=== PATIENT | male | born 1940 | race Caucasian/White ===

== ENCOUNTER → 2018-08-10 | Outpatient (CLI) | payer OTHER, MEDICARE ==
--- NOTE | 2018-08-13 06:08 | SLE ---
[facility] [address] POLYSOMNOGRAPHY STUDY Name: LD CHEEMA JR Room #: REG [facility]#: [id number] Admission: 08/10/18 ������������������ Attend Phys: Gal Bonilla MD Discharge: ������������������ Date of : 36 Report #: [id number] THIS REPORT FOR: //name// CC: Gal Enrique MD DATE OF SERVICE: 08/10/2018 ATTENDING PHYSICIAN: Sterling Enrique M.D. INTERPRETATION: The patient is a 77 years old. The patient's weight and height and BMI was not available at the time of dictation. The patient had an abnormal nocturnal oximetry study as an outpatient. As a result, suspicion for sleep apnea was high and the patient was referred to [facility] for a sleep study. This was a diagnostic study. During the night study, the patient spent 471 minutes in bed and slept for 276 minutes with low sleep efficiency of 58%. Sleep latency was 19 minutes with a REM latency of 145 minutes. Overall, sleep architecture showed increased stage 1 sleep, normal stage 2 sleep, absent N3 sleep and reduced REM sleep. During the night study, the patient had no apneas and 6 hypopneas. The patient's apnea-hypopnea index for the entire night was 1.3 per hour. The patient's REM index 3.3 per hour and a supine index of 1.3 per hour. EKG monitoring revealed an average heart rate of 91 beats per minute. The patient had irregular rhythm intermittently consistent with atrial fibrillation, PAC's and few PVC's seen as well. Maximum heart rate was 98 beats per minute. PLMS was seen at an index of 27 per hour and 6 per hour caused EEG arousals. Nocturnal oximetry study revealed an average oxygen saturation of 89% with lows of 82%. 177 minutes were spent at an oxygen saturation of less than 89%. Due to low AHI, the patient did not meet the split night criteria for CPAP initiation. IMPRESSION: 1. No clinically significant sleep disordered breathing. The patient's AHI for the entire night was 1.3 per hour. 2. Abnormal nocturnal oximetry study suggesting hypoventilation. The patient is on chronic clonazepam, which can contribute to nocturnal hypoxia. 3. Reduced sleep efficiency resulting from sleep maintenance insomnia. 4. Moderate periodic limb movements. [facility] [address] [place] [address] POLYSOMNOGRAPHY STUDY Name: LD CHEEMA Room #: REG [facility]#: [id number] Admission: 08/10/18 ������������������ Attend Phys: Gal Bonilla MD Discharge: ������������������ Date of : 36 Report #: [id number] RECOMMENDATIONS: 1. The patient did not meet the criteria for CPAP initiation. 2. The patient does qualify for use of nocturnal oxygen at 2 liters. I would also recommend to minimize the use of benzodiazepines. 3. Avoid [employer] depressants. 4. Cautioned regarding driving until hypersomnia is resolved. 5. The patient should also be further evaluated for symptoms of restless legs during the day. 6. The patient's insomnia should also be further evaluated and treated according to the etiology. ��������������������������������������������� <ELECTRONICALLY SIGNED> ���������������������������������������� By: Gal Bonilla MD ��������������������������������������������� 08/13/18 [id number] Gal Bonilla MD /nt
== END ==
LOC: SLEEPLAB 11:56
DX: G47.33 Obstructive sleep apnea (adult) (pediatric) (principal); G47.61 Periodic limb movement disorder